=== PATIENT | female | born 1960 | race Caucasian/White ===

== ENCOUNTER 2017-11-28 15:25 | Inpatient (IN) | payer OTHER ==
[2017-11-28] VITALS (13 sets, daily range): BP systolic 122–168; BP diastolic 76–116
[~2017-11-28] VITALS: Ht 162.6 cm; Wt 67.6 kg
[~2017-11-28 15:25] MED LIST: ADULT AEROSOL1 EACH MC; ALAVERT10 M1 PO; ALBUTEROL2.5 MG/3 M IH; ASPIRIN325 PO; AUGMENTIN 875875 M1 PO; AVAPRO75 MG PO; BACTRIM DS TAB1 EACH PO; CELEXA 20 MG TA20 MG PO; CLOTRIMAZOLE-BE15 GM TOP; FISH OIL 1,001000 MG; HYDROCHLOROTH12.5 M1 PO; LEVOTHROID150 MCG; LIPITOR20 MG; MUCINEX600 MG; MULTIVITAMINS PO; NASONEB NASAL1 EACH MC; NICOTINE1 EACH; NORCO 5-325 TA1 EACH PO; PREDNISONE 10 M10 M1; PREDNISONE 20 M20 MG PO; PROMETHAZINE-D120 ML PO; SPIRIVA INH
[2017-11-28 15:57] LABS: ABSOLUTE BASOPHILS 0.1 thou/uL (0.0-0.2); ABSOLUTE EOSINOPHILS 0.2 thou/uL (0.0-0.7); ABSOLUTE MONOCYTES 0.9 thou/uL (0.0-1.2); BASOPHILS 1.1 %; HEMOGLOBIN 14.8 gm/dL (12.0-15.0); LYMPHOCYTES 35.6 %; MCH 30.6 pg (26.0-34.0); MCHC 33.7 g/dL (28.0-37.0); MCV 90.8 fL (80.0-100.0); MONOCYTES 8.1 %; MPV 8.3 fl. (7.2-11.1); NUCLEATED RBCS 0 /100WBC; PLATELET COUNT* 343 thou/uL (150-400); POLYS 53.2 %; RBC 4.84 mil/uL (4.20-5.00); RDW-CV 13.2 % (10.5-14.5); WBC 11.3 thou/uL (4.0-11.0)
[2017-11-28 16:02] LABS: POC CA IONIZED 4.4 mg/dL (4.5-5.3); POC CREATININE 0.9 mg/dL (0.6-1.3); POC POTASSIUM 3.9 mmol/L (3.5-4.9)
[2017-11-28 16:10] LABS: APTT 27.8 Seconds (25.0-31.3); PROTIME 10.2 Seconds (9.20-11.50)
[2017-11-28 16:19] LABS: ANION GAP 10 mmol/L (7-16); BUN 18 mg/dL (7-18); CALCIUM 8.8 mg/dL (8.5-10.1); CHLORIDE 103 mmol/L (98-107); CO2 28 mmol/L (21-32); CREATININE 0.7 mg/dL (0.6-1.3); GLUCOSE 94 mg/dL (70-99); POTASSIUM 3.9 mmol/L (3.5-5.1); SODIUM 141 mmol/L (136-145)
[2017-11-28 16:34] LABS: ALBUMIN 3.9 g/dL (3.4-5.0); ALKALINE PHOSPHATASE 81 U/L (46-116); SGOT 22 U/L (15-37); SGPT 30 U/L (30-65); TOTAL BILIRUBIN 0.2 mg/dL (<0.1-1.0); TOTAL PROTEIN 7.7 g/dL (6.4-8.2)
[2017-11-28 16:35] LABS: TROPONIN-I LEVEL <0.06 ng/mL (<0.06)
[2017-11-28 16:39] LABS: CK-MB MASS 1.5 ng/mL (<0.5-3.6); NT-PRO BRAIN NAT PEPTIDE 39 pg/mL (<300)
[2017-11-28 16:39] LABS: URINE BILIRUBIN NEGATIVE (Negative); URINE BLOOD TRACE (Negative); URINE CLARITY CLEAR; URINE COLOR YELLOW; URINE GLUCOSE-RANDOM NEGATIVE (Negative); URINE KETONES NEGATIVE (Negative); URINE LEUKOCYTES-REFLEX NEGATIVE (Negative); URINE NITRITE-REFLEX NEGATIVE (Negative); URINE PROTEIN NEGATIVE (Negative); URINE UROBILINOGEN 0.2 E.U./dl (0.2-1.0)
[2017-11-28 16:53] LABS: AMP/METHAMP Negative (Negative); BARBITURATES Negative (Negative); BENZODIAZEPINES Negative (Negative); COCAINE Negative (Negative); METHADONE Negative (Negative); OPIATES Negative (Negative); PCP Negative (Negative); THC Negative (Negative)
[2017-11-29] VITALS (18 sets, daily range): BP systolic 139–188; BP diastolic 77–107
[2017-11-29 09:01] LABS: HEMATOCRIT 38.5 % (37.0-47.0); HEMOGLOBIN 13.2 gm/dL (12.0-15.0); MCH 31.1 pg (26.0-34.0); MCHC 34.3 g/dL (28.0-37.0); MCV 90.8 fL (80.0-100.0); MPV 8.5 fl. (7.2-11.1); RBC 4.24 mil/uL (4.20-5.00); RDW-CV 13.2 % (10.5-14.5); WBC 14.6 thou/uL (4.0-11.0)
[2017-11-29 09:31] LABS: ANION GAP 7 mmol/L (7-16); BUN 11 mg/dL (7-18); CALCIUM 7.7 mg/dL (8.5-10.1); CHLORIDE 104 mmol/L (98-107); CHOLESTEROL 123 mg/dL (<200); CO2 28 mmol/L (21-32); CREATININE 0.8 mg/dL (0.6-1.3); GLUCOSE 96 mg/dL (70-99); HDL CHOLESTEROL 47 mg/dL (>40); LDL CHOLESTEROL 49 mg/dL (<100); MAGNESIUM 2.2 mg/dL (1.8-2.4); POTASSIUM 3.7 mmol/L (3.5-5.1); SERUM ASSESSMENT Clear; SODIUM 139 mmol/L (136-145); TC:HDL 2.6 Ratio (Not establshd); TRIGLYCERIDE 135 mg/dL (<150); VLDL 27 mg/dL (<40)
--- NOTE | 2017-11-29 10:58 | EKG ---
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 11/29/17 1058 1549 1549 Honorio Askew MD, [facility] /EPI
[2017-11-30 04:24] VITALS: BP 178/97
[2017-11-30 09:00] VITALS: BP 168/61
[2017-11-30 11:08] LABS: GLYCOHEMOGLOBIN (HGB A1C) 5.4 % (4.8-5.6)
[2017-11-30 12:00] VITALS: BP 127/82
[2017-11-30] MEDS ORDERED: AUGMENTIN400 MG/53 PO (13:23)
[2017-11-30] MEDS ORDERED: PROMETHAZINE-D118 ML PO (13:26)
[2017-11-30 14:43] LABS: HEMATOCRIT 41.7 % (37.0-47.0); HEMOGLOBIN 14.2 gm/dL (12.0-15.0); MCH 31.1 pg (26.0-34.0); MCHC 34.1 g/dL (28.0-37.0); MCV 91.1 fL (80.0-100.0); MPV 8.6 fl. (7.2-11.1); RBC 4.58 mil/uL (4.20-5.00); RDW-CV 13.1 % (10.5-14.5); WBC 7.9 thou/uL (4.0-11.0)
--- NOTE | 2017-11-30 16:19 | 2DMMODE ---
[place] [address] 2 D/M-MODE ECHOCARDIOGRAM Name: ISI HARDEN Room: [address] IN [facility]#: [id number] Admission: 11/28/17 Attend Phys: Paul Salcedo, Discharge: Date of : 62 Date of Service: 11/30/17 1619 Report #: [id number] THIS REPORT FOR: //name// APPROVED REPORT Study performed: 11/30/2017 15:38:15 EXAM: Comprehensive 2D, Doppler, and color-flow Echocardiogram Patient Location: In-Patient Room #: 222 Status: routine BSA: 1.73 HR: 71 bpm BP: 127/82 mmHg Rhythm: NSR Other Information Study Quality: Good Indications CVA/TIA Weakness, ETOH Echo Enhancing Agent Indication: Rule out Shunt Agent(s) / Amount(s) Used: Agitated Saline 10 cc 2D Dimensions LVEF(%): 67.42 (>50%) IVSd: 12.07 (7-11mm) LVOT Diam: 20.10 (18-24mm) LVDd: 45.62 mm PWd: 8.45 (7-11mm) Ascending Ao: 29.60 (22-36mm) LVDs: 28.59 (25-40mm) Aortic Root: 27.39 mm Martel's LVEF: 67.42 % Volumes Left Atrial Volume (Systole) LA ESV Index: 20.90 mL/m2 Aortic Valve AoV Peak Jose.: 1.22 m/s AO Peak Gr.: 5.98 mmHg LVOT Max P.65 mmHg AO Mean Gr.: 3.82 mmHg LVOT Mean P.69 mmHg LVOT Max V: 1.29 m/[place] [address] 2 D/M-MODE ECHOCARDIOGRAM Name: ISI HARDEN Room: [address] IN .R.#: [id number] Admission: 11/28/17 Attend Phys: Paul Salcedo, Discharge: Date of : 62 Date of Service: 11/30/17 1619 Report #: [id number] AO V2 VTI: 23.86 cm LVOT Mean V: 0.73 m/s CONSTANCE (VTI): 3.24 cm2 LVOT V1 VTI: 24.37 cm Mitral Valve E/A Ratio: 1.05 MV Decel. Time: 203.05 ms MV E Max Jose.: 0.81 m/s MV PHT: 58.88 ms MVA (PHT): 3.74 cm2 TDI E/Lateral E': 8.10 E/Medial E': 10.13 Medial E' Jose.: 0.08 m/s Lateral E' Jose.: 0.10 m/s Pulmonary Valve PV Peak Jose.: 0.82 m/s PV Peak Gr.: 2.68 mmHg Left Ventricle The left ventricle is normal size. There is normal LV segmental wall motion. There is normal left ventricular wall thickness. Left ventricular systolic function is normal. LVEF is 60-65%. The left ventricular diastolic function is normal. Right Ventricle The right ventricle is normal size. The right ventricular systolic function is normal. Atria The left atrium size is normal. Aggitated saline injection shows no evidence of right to left shunt. The right atrium size is normal. Aortic Valve The aortic valve is normal in structure. No aortic regurgitation is present. There is no aortic valvular stenosis. Mitral Valve The mitral valve is normal in structure. There is no mitral valve regurgitation noted. No evidence of mitral valve stenosis. Tricuspid Valve The tricuspid valve is normal in structure. Unable to assess PA pressure. Trace tricuspid regurgitation[place] [address] 2 D/M-MODE ECHOCARDIOGRAM Name: ISI HARDEN Room: [address] IN [facility]#: [id number] Admission: 11/28/17 Attend Phys: Paul Salcedo, Discharge: Date of : 62 Date of Service: 11/30/17 1619 Report #: [id number] The pulmonary valve is normal in structure. There is no pulmonic valvular regurgitation. Great Vessels The aortic root is normal in size. IVC is normal in size and collapses with >50% inspiration Pericardium There is no pericardial effusion. <Conclusion> The left ventricle is normal size. There is normal left ventricular wall thickness. Left ventricular systolic function is normal. LVEF is 60-65%. The left ventricular diastolic function is normal. There is normal LV segmental wall motion. Aggitated saline injection shows no evidence of right to left shunt. IVC is normal in size and collapses with >50% inspiration <ELECTRONICALLY SIGNED> By: Ibrahima Farfan MD, FACC 11/30/17 1619 1619 1619 Ibrahima Farafn MD, FACC /INF
[2017-11-30 17:25] VITALS: BP 127/82
--- NOTE | 2017-12-01 19:06 | CON ---
[address] [address] CONSULTATION Name: ISI HARDEN Room: [address] IN M.R.#: [id number] Admission: 11/28/17 Attend Phys: Paul Salcedo MD Discharge: 11/30/17 Date of : 62 Report #: [id number] THIS REPORT FOR: //name// CC: Anthony Salcedo DATE OF SERVICE: 11/28/2017 HISTORY OF PRESENT ILLNESS: This is a 57-year-old female patient who was evaluated by me on the referral from Dr. Perez from Emergency Room. I talked to Dr. Perez on the phone initially. He indicated that the patient had acute onset of left upper extremity weakness and confusion with the onset 15-20 minutes prior to arrival. The patient was initially evaluated by Dr. Perez from the Emergency Room with a CT scan and other workup for the possibility of TPA. He discussed indication, potential complication, and alternatives of TPA with the family and started the patient on TPA. When I came to the Emergency Room, the patient has received the bolus and was getting rest of the TPA, but the history I got from the patient and the family was altogether different. The patient gave a history that she drank 12 beers last night. Family thinks she probably did more than that. Initially, she said she did not drink any alcohol this morning, but then she said she took 1 martini this morning. The history about the left arm weakness is even more unclear. The family insists that it started 15-20 minutes ago. The patient indicated first that she woke up with it and subsequently she indicated that it came later on. All this history is very confusing. REVIEW OF SYSTEMS: Indicate that she drank alcohol on a regular basis. She smokes. She is under a lot of stress. She does have a history of COPD and hypertension. I did 14-point review of system, but this was the relevant one. PAST MEDICAL HISTORY: Negative for stroke or TIA. FAMILY HISTORY: Negative for epilepsy or any early age stroke, the best I can get. PHYSICAL EXAMINATION: Indicate that this patient is alert, responsive. She can follow simple commands. She is oriented. Cranial nerve examination 2-12 looks unremarkable. She is definitely weak in the left upper extremity and significantly . Her strength is about 3/5. Left lower extremity looks okay and her sensation is altered in the left upper extremities in generalized fashion. Reflexes look symmetrical. Examination was carried out multiple times in this patient. IMPRESSION: I am not convinced that this patient had a cerebrovascular accident. I spent a lot of time with this patient [place] [address] CONSULTATION Name: ISI HARDEN Room: [address] IN M.R.#: [id number] Admission: 11/28/17 Attend Phys: Paul Salcedo MD Discharge: 11/30/17 Date of : 62 Report #: [id number] if she ever had any speech difficulty and she indicated it was mostly the memory problems and inability to remember things and regress. I frankly told the family that although I cannot fully exclude it, but I do not believe these symptoms are consistent with cerebrovascular accident. In fact, TPA was going when I came and I stopped the TPA. Family insisted that she gets TPA and so does the patient. I tried to try to tell them that typically memory disturbance is not because of stroke and they are typically associated with some speech difficulty, but the daughter insisted that her had a stroke just with memory disturbances. I discussed with her that chances of her bleeding is higher because of white matter changes on the CT scan and the fact that she drinks alcohol on a regular basis. I discussed with them that although I cannot rule out the stroke, but the chances are that the left arm weakness is because of brachial plexus stretch injury because she drank so much alcohol, but they all wanted this patient to have the TPA. The patient already had part of the TPA and the bolus when I had stopped the TPA. At their strong insistence and request, I asked the nurses to finish the TPA as ordered by Dr. Perez. I did discuss with the family that this patient can bleed. If she bleeds, we do not have any neurosurgical backup here. I did order a CT angio and perfusion on this patient stat when I had stopped the TPA, but the patient and the family is so insistent on getting the TPA that I continued the TPA, which was ordered by Emergency Room physician, although I had stopped that at one time, but family and the patient insisted that TPA be given and they fully understand the complication and I cannot rule out stroke with weakness, but there are other explanation for her symptoms also and I have discussed all of it with the family in detail and will talk to them again. Thank you very much for this referral and I have discussed this patient with Emergency Room physician multiple times. This patient will be given banana bag by the Emergency Room physician and I will review her workup later and dictate another note later. Thank you very much for this referral. <ELECTRONICALLY SIGNED> By: Rashi Clay MD 12/01/17 [id number] Clay MD /richard
== END 2017-11-30 18:18 | disposition home or self-care (01) | DRG 61 ==
LOC: M.ERS 15:25 → M.TBA-ER 16:15 → M.2W 16:15 → M.ICU 16:15 → M.2W 11-29 09:34
PROVIDERS: Emergency Medicine Emergency Medical Services; Psychiatry & Neurology Neuromuscular Medicine; ADMIT Internal Medicine
DX: G45.9 Transient cerebral ischemic attack, unspecified (principal); G93.40 Encephalopathy, unspecified; I16.1 Hypertensive emergency; I12.9 Hypertensive chronic kidney disease with stage 1 through stage 4 chronic kidney disease, or unspecified chronic kidney disease; N18.2 Chronic kidney disease, stage 2 (mild); E86.0 Dehydration; J44.9 Chronic obstructive pulmonary disease, unspecified; F17.210 Nicotine dependence, cigarettes, uncomplicated; G45.4 Transient global amnesia; F10.129 Alcohol abuse with intoxication, unspecified; Z79.2 Long term (current) use of antibiotics; Z79.82 Long term (current) use of aspirin; Z79.899 Other long term (current) drug therapy; Z72.89 Other problems related to lifestyle

== ENCOUNTER 2018-03-26 09:47 | Emergency (ER) | payer OTHER ==
[~2018-03-26] VITALS: Ht 160 cm; Wt 68.0 kg
[~2018-03-26 09:47] MED LIST changes: +AUGMENTIN400 MG/53 PO; +PROMETHAZINE-D118 ML PO
[2018-03-26] MEDS ORDERED: KEFLEX500 M1 PO (10:45)
[2018-03-26] MEDS ORDERED: IBUPROFEN 800800 MG PO (10:45)
[2018-03-26 10:52] VITALS: BP 135/90
== END 2018-03-26 10:53 | disposition home or self-care (01) ==
LOC: M.ERS 09:47
DX: M70.32 Other bursitis of elbow, left elbow (principal); J44.9 Chronic obstructive pulmonary disease, unspecified; I10 Essential (primary) hypertension; Z86.73 Personal history of transient ischemic attack (TIA), and cerebral infarction without residual deficits